=== PATIENT | male | born 1990 | race African-American/Black ===

== ENCOUNTER 2016-12-10 17:14 | Emergency (ER) | payer OTHER ==
[~2016-12-10 17:14] MED LIST: AZITHROMYCIN250 MG PO; LIDOCAINE VISCOU1 ML EXT; LORTAB ELIXIR480 ML PO
[2016-12-10 17:50] LABS: URINE SOURCE CLEAN CATCH
[2016-12-10 17:55] LABS: URINE APPEARANCE CLEAR; URINE BILIRUBIN NEG (NEG); URINE BLOOD 3+ (NEG); URINE COLOR RED; URINE GLUCOSE NEG (NEG); URINE KETONE NEG (NEG); URINE LEUKOCYTE ESTERASE TRACE (NEG); URINE NITRATE NEG (NEG); URINE PH 6.5 (5-8); URINE PROTEIN 1+ (NEG); URINE SPECIFIC GRAVITY 1.003 (1.003-1.035); URINE UROBILINOGEN 0.2 MG/DL (NEG)
[2016-12-10 17:58] LABS: URINE BACTERIA AUWI NEG (NEGATIVE); URINE SQUAMOUS EPITHELIAL CELL NONE SEEN /[HPF]; UWBCS1 AUWI 0-2 (0-5)
[2016-12-10 18:05] LABS: CULTURE INDICATED? NO
[2016-12-13 23:37] LABS: CHLAMYDIA TRACH Not Detected (Not Detected); N GONOR Not Detected (Not Detected)
== END 2016-12-10 18:55 | disposition home or self-care (01) ==
LOC: CFTX 17:14 → CED 17:14 → CFTX 17:57
PROVIDERS: Nurse Practitioner
DX: R31.9 Hematuria, unspecified (principal); F17.200 Nicotine dependence, unspecified, uncomplicated
CPT/HCPCS: 81003; 87491; 87591; 99283